=== PATIENT | male | born 1955 | race Caucasian/White ===

== ENCOUNTER 2021-04-25 13:28 | Outpatient (CLI) | payer MEDICARE | END 2021-04-25 13:29 | disposition home or self-care (01) | LOC: CSHWCC 13:28 | PROVIDERS: ATTEND Nurse Practitioner Family | DX: T81.89XD Other complications of procedures, not elsewhere classified, subsequent encounter (principal); I87.2 Venous insufficiency (chronic) (peripheral); I82.409 Acute embolism and thrombosis of unspecified deep veins of unspecified lower extremity; L03.032 Cellulitis of left toe; M86.672 Other chronic osteomyelitis, left ankle and foot; R60.0 Localized edema; E03.9 Hypothyroidism, unspecified; E66.3 Overweight; I10 Essential (primary) hypertension | CPT/HCPCS: 97139; G0463; 99203 ==

== ENCOUNTER 2021-05-02 08:45 | Outpatient (CLI) | payer MEDICARE | END 2021-05-02 08:46 | disposition home or self-care (01) | LOC: CSHWCC 08:45 | PROVIDERS: ATTEND Nurse Practitioner Family | DX: T81.89XD Other complications of procedures, not elsewhere classified, subsequent encounter (principal); I87.2 Venous insufficiency (chronic) (peripheral); I82.409 Acute embolism and thrombosis of unspecified deep veins of unspecified lower extremity; M86.672 Other chronic osteomyelitis, left ankle and foot; R60.0 Localized edema; L03.032 Cellulitis of left toe; E03.9 Hypothyroidism, unspecified; E66.3 Overweight; I10 Essential (primary) hypertension ==

== ENCOUNTER 2021-05-20 08:12 | Outpatient (CLI) | payer MEDICARE | END 2021-05-20 08:13 | disposition home or self-care (01) | LOC: CSHWCC 08:12 | PROVIDERS: ATTEND Nurse Practitioner Family | DX: T81.89XD Other complications of procedures, not elsewhere classified, subsequent encounter (principal); I87.2 Venous insufficiency (chronic) (peripheral); M86.672 Other chronic osteomyelitis, left ankle and foot; L03.032 Cellulitis of left toe; I82.409 Acute embolism and thrombosis of unspecified deep veins of unspecified lower extremity; R60.0 Localized edema; E03.9 Hypothyroidism, unspecified; I10 Essential (primary) hypertension; E66.3 Overweight | CPT/HCPCS: 99213; G0463 ==

== ENCOUNTER 2021-07-02 08:43 | Outpatient (CLI) | payer MEDICARE | END 2021-07-02 08:44 | disposition home or self-care (01) | LOC: CSHWCC 08:43 | PROVIDERS: ATTEND Nurse Practitioner Family | DX: T81.89XD Other complications of procedures, not elsewhere classified, subsequent encounter (principal); R60.0 Localized edema; L03.032 Cellulitis of left toe; I87.2 Venous insufficiency (chronic) (peripheral); M86.672 Other chronic osteomyelitis, left ankle and foot; E03.9 Hypothyroidism, unspecified; E66.3 Overweight; I82.409 Acute embolism and thrombosis of unspecified deep veins of unspecified lower extremity; I10 Essential (primary) hypertension | CPT/HCPCS: 99212; G0463 ==

== ENCOUNTER 2024-06-06 14:32 | Outpatient (CLI) | payer MEDICARE | END 2024-06-06 14:33 | disposition home or self-care (01) | LOC: CSHWCC 14:32 | PROVIDERS: ATTEND Nurse Practitioner Family | DX: S81.802D Unspecified open wound, left lower leg, subsequent encounter (principal); I73.9 Peripheral vascular disease, unspecified; Z89.512 Acquired absence of left leg below knee; Z86.718 Personal history of other venous thrombosis and embolism | CPT/HCPCS: 11044; 11047; 97606; G0463; 99213 ==

== ENCOUNTER 2024-06-20 15:00 | Outpatient (CLI) | payer MEDICARE | END 2024-06-20 15:01 | disposition home or self-care (01) | LOC: CSHWCC 15:00 | PROVIDERS: ATTEND Nurse Practitioner Family | DX: S81.802D Unspecified open wound, left lower leg, subsequent encounter (principal); I73.9 Peripheral vascular disease, unspecified; Z86.718 Personal history of other venous thrombosis and embolism; Z89.512 Acquired absence of left leg below knee | CPT/HCPCS: 11044; 11047; 97606 ==

== ENCOUNTER 2024-07-04 14:08 | Outpatient (CLI) | payer MEDICARE | END 2024-07-04 14:09 | disposition home or self-care (01) | LOC: CSHWCC 14:08 | PROVIDERS: ATTEND Nurse Practitioner Family | DX: S81.802D Unspecified open wound, left lower leg, subsequent encounter (principal); I73.9 Peripheral vascular disease, unspecified; Z86.718 Personal history of other venous thrombosis and embolism; Z89.512 Acquired absence of left leg below knee | CPT/HCPCS: 11042; 11045; G0463; 99212 ==